=== PATIENT | female | born 1975 | race Caucasian/White ===

== ENCOUNTER 2024-12-04 06:54 | Day surgery (SDC) | payer BC ==
[~2024-12-04] VITALS: Ht 167.6 cm; Wt 94.3 kg
[~2024-12-04 06:54] MED LIST: CORTISOL MANAGER PO; CYCLOBENZAPRINE10 MG PO; LEXAPRO10 MG PO; PROBIOTI2 PO; RIZATRIPTAN BEN10 MG PO; ROSUVASTATIN CA20 MG PO; SLYND4 MG PO; SYNTHROID PO; WELLBUTRIN XL300 MG PO; [UNRECOGNIZED DRUG - OTHER] PO; [UNRECOGNIZED DRUG - OTHER] PO
[2024-12-04] MEDS ORDERED: SODIUM CHLORIDE 0.9% 1,000 ML IV ONE (07:04)
[2024-12-04] MEDS ORDERED: FAMOTIDINE 10MG/ML 2ML SDV IV ONE (07:04)
[2024-12-04] MEDS ORDERED: ONDANSETRON 4 MG/TAB ODT PO SCH (09:45)
[2024-12-04 12:05] VITALS: BP 113/80
[2024-12-04] MEDS ORDERED: GLYCOPYRROLATE 0.2 MG/ML IV ONE (15:14)
[2024-12-04] MEDS ORDERED: LIDOCAINE HCL 2% 2ML SDV IV ONE (15:14)
[2024-12-04] MEDS ORDERED: PROPOFOL 200 MG/20 ML VIAL IV ONE (15:14)
== END 2024-12-04 10:25 | disposition home or self-care (01) | DRG 951 ==
LOC: ENDO 06:54
PROVIDERS: ATTEND Surgery
PROC: 0DBM8ZX Excision of Descending Colon, Via Natural or Artificial Opening Endoscopic, Diagnostic (ICD-10-PCS; principal; 2024-12-04)
DX: Z12.11 Encounter for screening for malignant neoplasm of colon (principal); K51.40 Inflammatory polyps of colon without complications; K64.8 Other hemorrhoids; Z01.818 Encounter for other preprocedural examination; Z11.52 Encounter for screening for COVID-19
CPT/HCPCS: J1596